=== PATIENT | male | born 1950 | race Caucasian/White ===

== ENCOUNTER 2016-12-17 13:34 | Emergency (ER) | payer MEDICARE, OTHER | END 2016-12-17 17:23 | disposition home or self-care (01) | LOC: FER 13:34 | DX: S82.401A Unspecified fracture of shaft of right fibula, initial encounter for closed fracture (principal); I10 Essential (primary) hypertension; Z79.899 Other long term (current) drug therapy; Z87.891 Personal history of nicotine dependence; W18.31XA Fall on same level due to stepping on an object, initial encounter; Y92.009 Unspecified place in unspecified non-institutional (private) residence as the place of occurrence of the external cause; Y99.0 Civilian activity done for income or pay | CPT/HCPCS: 73590; 73610; J1885 ==

== ENCOUNTER 2016-12-20 13:07 | Emergency (ER) | payer MEDICARE, OTHER | END 2016-12-20 14:59 | disposition home or self-care (01) | LOC: FER 13:07 | DX: S82.401A Unspecified fracture of shaft of right fibula, initial encounter for closed fracture (principal); S90.829A Blister (nonthermal), unspecified foot, initial encounter; X58.XXXA Exposure to other specified factors, initial encounter | CPT/HCPCS: 73564; 73590; 99283 ==

== ENCOUNTER 2016-12-21 11:55 | Day surgery (SDCO) | payer MEDICARE, OTHER ==
[~2016-12-21] VITALS: Ht 182.9 cm; Wt 120.2 kg
[2016-12-21 12:24] LABS: HCT 42.3 % (42.0-52.0); HGB 15.2 g/dl (13.2-18.0); MCH 31.1 pg (25.0-31.0); MCHC 35.9 g/dL (32.0-36.0); MCV 86.7 fL (78.0-100.0); MPV 10.6 fL (6.0-9.5); RBC 4.88 M/uL (4.70-6.00); RDW 14.3 % (11.5-14.0)
[2016-12-21 12:41] LABS: CREATININE 0.8 mg/dL (0.7-1.2); POTASSIUM 4.3 mmol/L (3.5-5.1)
[2016-12-22 04:14] LABS: BASOPHIL 0.1 % (0-2); EOSINOPHIL 0.3 % (0-7); HCT 38.2 % (42.0-52.0); HGB 13.5 g/dl (13.2-18.0); LYMPHOCYTE 14.8 % (15-48); MCH 31.2 pg (25.0-31.0); MCHC 35.3 g/dL (32.0-36.0); MCV 88.2 fL (78.0-100.0); MONOCYTE 7.6 % (0-12); MPV 10.3 fL (6.0-9.5); NEUTROPHIL 77.2 % (41-80); PLT 203 K/uL (150-400); RBC 4.33 M/uL (4.70-6.00); RDW 13.9 % (11.5-14.0)
[2016-12-22 04:40] LABS: CREATININE 0.8 mg/dL (0.7-1.2); POTASSIUM 4.5 mmol/L (3.5-5.1)
== END 2016-12-22 13:38 | disposition home health service (06) ==
LOC: FAS 11:55 → FMS 15:14
PROVIDERS: Anesthesiology; Nurse Practitioner; ADMIT Legal Medicine
DX: S82.851A Displaced trimalleolar fracture of right lower leg, initial encounter for closed fracture (principal); S93.421A Sprain of deltoid ligament of right ankle, initial encounter; W18.31XA Fall on same level due to stepping on an object, initial encounter; Y92.019 Unspecified place in single-family (private) house as the place of occurrence of the external cause; I10 Essential (primary) hypertension; I47.1 Supraventricular tachycardia; Z79.899 Other long term (current) drug therapy; M19.90 Unspecified osteoarthritis, unspecified site; K21.9 Gastro-esophageal reflux disease without esophagitis; Z87.891 Personal history of nicotine dependence; E66.3 Overweight; Z68.35 Body mass index [BMI] 35.0-35.9, adult
CPT/HCPCS: 36415; 73600; 76000; 80048; 85025; 97116; 97161; 97165; 97530; 97530-GP; 97535; C1713; G0378; J0690; J1100; J1170; J1885; J2405; J2704; J2795; J3010